=== PATIENT | female | born 1975 ===

== ENCOUNTER 2017-05-23 09:39 | Inpatient (IN) | payer MEDICAID, OTHER ==
[2017-05-23 09:43] VITALS: O2SAT 100
[2017-05-23 09:46] VITALS: BMI 27.4
--- NOTE | 2017-05-23 10:08 | ED PDOC ---
HPI: Psych/Substance Abuse Time Seen by Provider: 05/23/17 09:47 Chief Complaint (Nursing): Psychiatric Evaluation Chief Complaint (Provider): Psychiatric Evaluation History Per: Patient History/Exam Limitations: no limitations Additional Complaint(s): Yuliet Egan is a 41 year old female with a history of depression that presents to the ED with a chief complaint of suicidal ideation. Patient reports that she has not slept and wants to kill herself. She is agitated and begging for medication to "make me sleep." Denies homicidal ideation, auditory hallucinations, visual hallucinations. Denies somatic complaints. Past Medical History Reviewed: Historical Data, Nursing Documentation, Vital Signs Vital Signs: Last Vital Signs Temp 98.0 F 05/23/17 09:42 Pulse 90 05/23/17 09:42 Resp 16 05/23/17 09:42 BP 139/86 05/23/17 09:42 Pulse Ox 100 05/23/17 09:42 - Medical History PMH: Anxiety, Depression Denies: Alzheimer's Disease, Anemia, Arthritis, Asthma, Bipolar Disorder, Bronchitis, Cardia Arrhythmia, CHF, COPD, Crohn's Disease, Dementia, Diverticulitis, Emphysema, Fibromyalgia, Fractures, Gastrointestinal Ulcer, Gall Bladder Disease, HIV, HTN, Hypercholesterolemia, Hyperthyroidism, Hypothyroidism, Kidney Stones, Migraine, Mitral Valve Prolapse, Osteoporosis, Pancreatitis, Paranoia, Parkinson's Disease, Peripheral Edema, Pneumonia, Post Traumatic Stress Disorder, Chronic Kidney Disease, Schizophrenia, Seizures, Sickle Cell Disease, Sexually Transmitted Disease, Sleep Apnea, TIA - Surgical History Surgical History: Denies: Appendectomy, Cholecystectomy, Coronary Stent, Pacemaker - Family History Family History: States: Unknown Family Hx - Immunization History Hx Tetanus Toxoid Vaccination: No Hx Influenza Vaccination: No Hx Pneumococcal Vaccination: No - Home Medications Home Medications: Ambulatory Orders Medication Instructions Recorded Multivit/Folic Acid/I 1 tab PO DAILY 07/22/16 [ Plus] Justice Carbonate [Justice 600 mg PO BID #60 cap 05/18/17 Carbonate 300MG] Sertraline [Zoloft] 100 mg PO DAILY #30 tab 05/18/17 traZODone [Desyrel] 100 mg PO HS #60 tab 05/18/17 - Allergies Allergies/Adverse Reactions: Allergies Allergy/AdvReac Type Severity Reaction Status Date / Time No Known Allergies Allergy Verified 05/23/17 09:57 Review of Systems ROS Statement: Except As Marked, All Systems Reviewed And Found Negative Constitutional: Negative for: Fever, Chills Cardiovascular: Negative for: Chest Pain, Palpitations Respiratory: Negative for: Cough, Shortness of Breath, SOB with Exertion Gastrointestinal: Negative for: Nausea, Vomiting, Abdominal Pain, Diarrhea, Constipation Genitourinary Female: Negative for: Dysuria, Frequency, Incontinence, Vaginal Discharge, Vaginal Bleeding, Pelvic Pain Musculoskeletal: Negative for: Neck Pain Neurological: Negative for: Weakness, Numbness, Headache Psych: Positive for: Anxiety, Depression, Suicidal ideation (denies HI), Other ( Denies auditory or visual hallucinations) Physical Exam - Reviewed Nursing Documentation Reviewed: Yes Vital Signs Reviewed: Yes - Physical Exam Appears: Positive for: Non-toxic, No Acute Distress (Patient is tearful on exam , Agitated) Head Exam: Positive for: ATRAUMATIC, NORMOCEPHALIC Skin: Positive for: Normal Color, Warm Eye Exam: Positive for: Normal appearance, EOMI, PERRL Cardiovascular/Chest: Positive for: Regular Rate, Rhythm. Negative for: Murmur Respiratory: Positive for: Normal Breath Sounds. Negative for: Wheezing Gastrointestinal/Abdominal: Positive for: Normal Exam, Soft. Negative for: Tenderness Back: Positive for: Normal Inspection. Negative for: L CVA Tenderness, R CVA Tenderness Extremity: Positive for: Normal ROM Neurologic/Psych: Positive for: Alert, Oriented, Mood/Affect (Agitated affect). Negative for: Motor/Sensory Deficits - Laboratory Results Result Diagrams: 05/23/17 10:25 05/23/17 10:25 - ECG O2 Sat by Pulse Oximetry: 100 (RA) Pulse Ox Interpretation: Normal Medical Decision Making Medical Decision Making: Impression: Psychiatric Evaluation. Agitated. Plan: * Chest X-Ray * EKG * CMP * CBC * Urine Drug Screen * Urine Preg * Ativan 2 mg IV Will medically clear and consult psych 11:06AM Patient accepted by Dr. Nj for anxiety. EKG shows NSR at 75bpm with isolated t wave inversion in AVR and V1. No prior for comparison. No complaint of chest pain or shortness of breath. Poc negative. UA positive for trace leukocytes. No complaint of dysuria. Labs grossly normal. ETOh <10. UDS negative. Patient medically cleared. Scribe Attestation: Documented by Debi Cuadra, acting as a scribe for Allison Rm MD. Provider Scribe Attestation: All medical record entries made by the Scribe were at my direction and personally dictated by me. I have reviewed the chart and agree that the record accurately reflects my personal performance of the history, physical exam, medical decision making, and the department course for this patient. I have also personally directed, reviewed, and agree with the discharge instructions and disposition. Disposition - Clinical Impression Clinical Impression: Anxiety - Disposition Disposition Time: 11:08 Condition: FAIR - Pt Status Changed To: Hospital Disposition Of: Inpatient - Admit Certification Admit to Inpatient:: After my assessment, the patient will require hospitalization for at least two midnights. This is because of the severity of symptoms shown, intensity of services needed, and/or the medical risk in this patient being treated as an outpatient.
[2017-05-23 10:52] LABS: BASO % 0.4 % (0.0-2.0); EOS # 0.2 K/uL (0.0-0.7); EOS % 1.4 % (0.0-4.0); HEMATOCRIT 42.2 % (34.0-47.0); LYMPH % 16.2 % (20.0-40.0); MEAN CELL VOLUME 82.5 fl (81.0-99.0); MEAN CORPUSCULAR HEMOGLOBIN 26.7 pg (27.0-31.0); MEAN CORPUSCULAR HGB CONC 32.3 g/dL (33.0-37.0); MONO # 0.7 K/uL (0.0-0.8); MONO % 5.4 % (0.0-10.0); NEUT # 9.6 K/uL (1.8-7.0); NEUT % 76.6 % (50.0-75.0); NRBC % 0.2 % (0.0-0.0); RED CELL DISTRIBUTION WIDTH 14.5 % (11.5-14.5); WHITE BLOOD COUNT 12.6 K/uL (4.8-10.8)
[2017-05-23 11:09] LABS: ALCOHOL SERUM < 10 mg/dl (0-10); BILIRUBIN,TOTAL 0.8 mg/dl (0.2-1.3); CARBON DIOXIDE 27 mmol/L (22-30); CHLORIDE 105 mmol/L (98-107); GFR AFRICAN-AMERICAN > 60; GLUCOSE,RANDOM 90 mg/dL (65-105); SODIUM 142 mmol/l (132-148)
[2017-05-23 11:13] LABS: ALB/GLOB RATIO 1.2 (1.0-2.1); ALKALINE PHOSPHATASE 112 U/L (38-126); ALT/SGPT 48 U/L (9-52); AST/SGOT 65 U/L (14-36); BLOOD UREA NITROGEN 10 mg/dl (7-17); POTASSIUM 4.9 MMOL/L (3.6-5.0); TOTAL PROTEIN 8.1 G/DL (6.3-8.2)
--- NOTE | 2017-05-23 11:41 | RAD ---
HISTORY: depression COMPARISON: No prior. FINDINGS: LUNGS: No active pulmonary disease. There is some crowding of bronchovascular markings at the medial bases bilaterally. PLEURA: No significant pleural effusion identified, no pneumothorax apparent. CARDIOVASCULAR: Cardiomegaly is appreciated there is no definite pulmonary vascular derangement identified. Clinically correlate further nevertheless. OSSEOUS STRUCTURES: No significant abnormalities. VISUALIZED UPPER ABDOMEN: Normal. OTHER FINDINGS: None. IMPRESSION: Cardiomegaly. No definite pulmonary vascular derangement. Clinically correlate nevertheless. No definitive infiltrate bilaterally.
[2017-05-23 12:17] LABS: RBC URINE 3 /hpf (0-3); URINE BACTERIA OCC (<OCC); URINE BILIRUBIN NEGATIVE (NEGATIVE); URINE BLOOD NEGATIVE (NEGATIVE); URINE COLOR YELLOW (YELLOW); URINE GLUCOSE (UA) NEG (Normal); URINE KETONE NEGATIVE (NEGATIVE); URINE LEUKOCYTE ESTERASE LARGE Leu/uL (Negative); URINE PROTEIN 30 mg/dL (NEGATIVE); URINE UROBILINOGEN 0.2-1.0 mg/dL (0.2-1.0); WBC URINE 26 /hpf (0-5)
[2017-05-23] MEDS ORDERED: DiphenhydrAMINE 50 mg/ml Inj IM PRN (13:48)
[2017-05-23] MEDS ORDERED: Magnesium Hydroxide Susp 30 ml UD PO PRN (13:48)
[2017-05-23] MEDS ORDERED: Alum-Mag Hydrox-Simethicone Susp (30 mL) PO PRN (13:48)
--- NOTE | 2017-05-23 14:21 | CP.PCM.CON ---
History of Present Illness - History of Present Illness History of Present Illness: 41 year old female with a history of depression presented to ER with worsening symptoms of depression , unable to sleep for 4 weeks and suicidal thoughts. She was seen at [facility] 2 weeks ago and was started on seroquel and trazodone but as per patient is not helping. She complains of headache pressure like, inability to sleep. Denies any CP, SOB, urinary sx or changes in bowel movements She was diagnosed with depression 4 years ago and was treatedw ith medications but does not remember the name. 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 Review of Systems - Review of Systems All systems: reviewed and no additional remarkable complaints except Past Patient History - Infectious Disease Hx of Infectious Diseases: None - Tetanus Immunizations Tetanus Immunization: Unknown - Past Social History Smoking Status: Never Smoked - CARDIAC Hx Cardia Arrhythmia: No Hx Congestive Heart Failure: No Hx Hypercholesterolemia: No Hx Hypertension: No Hx Mitral Valve Prolapse: No Hx Pacemaker: No Hx Peripheral Edema: No - PULMONARY Hx Asthma: No Hx Bronchitis: No Hx Chronic Obstructive Pulmonary Disease (COPD): No Hx Emphysema: No Hx Pneumonia: No Hx Sleep Apnea: No - NEUROLOGICAL Hx Alzheimer's Disease: No Hx Dementia: No Hx Migraine: No Hx Parkinson's Disease: No Hx Seizures: No Hx Transient Ischemic Attacks (TIA): No - HEENT Hx HEENT Problems: No Hx Cataracts: No Hx Deafness: No Hx Difficulty Chewing: No Hx Epistaxis: No Hx Glaucoma: No Hx Macular Degeneration: No - RENAL Hx Chronic Kidney Disease: No Hx Kidney Stones: No - ENDOCRINE/METABOLIC Hx Hyperthyroidism: No Hx Hypothyroidism: No - HEMATOLOGICAL/ONCOLOGICAL Hx Anemia: No Hx Human Immunodeficiency Virus (HIV): No Hx Sickle Cell Disease: No - INTEGUMENTARY Hx Dermatological Problems: No Hx Basil Cell: No Hx Eczema: No Hx Melanoma: No Hx Psoriasis: No Hx Squamous Cell: No - MUSCULOSKELETAL/RHEUMATOLOGICAL Hx Arthritis: No Hx Fractures: No Hx Osteoporosis: No - GASTROINTESTINAL Hx Crohn's Disease: No Hx Diverticulitis: No Hx Gall Bladder Disease: No Hx Pancreatitis: No - GENITOURINARY/GYNECOLOGICAL Hx Sexually Transmitted Disorders: No - PSYCHIATRIC Hx Anxiety: Yes Hx Bipolar Disorder: No Hx Depression: Yes Hx Paranoia: No Hx Post Traumatic Stress Disorder: No Hx Schizophrenia: No - SURGICAL HISTORY Hx Appendectomy: No Hx Cholecystectomy: No Hx Coronary Stent: No - ANESTHESIA Hx Anesthesia: No Meds Allergies/Adverse Reactions: Allergies Allergy/AdvReac Type Severity Reaction Status Date / Time No Known Allergies Allergy Verified 05/23/17 09:57 - Medications Medications: Current Medications Acetaminophen (Tylenol 325mg Tab) 650 mg PO Q4 PRN PRN Reason: Pain, moderate (4-7) Al Hydrox/Mg Hydrox/Simethicone (Maalox Plus 30 Ml) 30 ml PO Q4 PRN PRN Reason: Dyspepsia Diphenhydramine HCl (Benadryl) 50 mg IM Q6 PRN PRN Reason: Extrapyramidal S/S Unable PO Diphenhydramine HCl (Benadryl) 50 mg PO Q6 PRN PRN Reason: Extrapyramidal Symptoms Escitalopram Oxalate (Lexapro) 5 mg PO DAILY ROSAURA Haloperidol (Haldol) 5 mg PO Q4 PRN PRN Reason: Agitation Haloperidol Lactate (Haldol) 5 mg IM Q4 PRN PRN Reason: Agitation, Unable to Take PO Lorazepam (Ativan) 2 mg IM Q4 PRN PRN Reason: Anxiety/Agitation,Unable PO Lorazepam (Ativan) 2 mg PO Q4 PRN PRN Reason: Anxiety/Agitation Magnesium Hydroxide (Milk Of Magnesia) 30 ml PO HS PRN PRN Reason: Constipation Zolpidem Tartrate (Ambien) 5 mg PO HS PRN PRN Reason: Insomnia Physical Exam - Constitutional Appears: Non-toxic, No Acute Distress - Head Exam Head Exam: ATRAUMATIC, NORMAL INSPECTION, NORMOCEPHALIC - Eye Exam Eye Exam: EOMI, Normal appearance, PERRL Pupil Exam: NORMAL ACCOMODATION - ENT Exam ENT Exam: Mucous Membranes Moist, Normal Exam - Neck Exam Neck exam: Positive for: Full Rom, Normal Inspection - Respiratory Exam Respiratory Exam: Clear to Auscultation Bilateral, NORMAL BREATHING PATTERN. absent: Rales, Rhonchi, Wheezes - Cardiovascular Exam Cardiovascular Exam: REGULAR RHYTHM, RRR, +S1, +S2. absent: JVD - GI/Abdominal Exam GI & Abdominal Exam: Normal Bowel Sounds, Soft. absent: Distended, Guarding, Rebound, Tenderness - Rectal Exam Rectal Exam: Deferred - Extremities Exam Extremities exam: Positive for: normal capillary refill, normal inspection, pedal pulses present. Negative for: calf tenderness, pedal edema - Back Exam Back exam: NORMAL INSPECTION - Neurological Exam Neurological exam: Alert, CN II-XII Intact, Oriented x3, Reflexes Normal - Psychiatric Exam Psychiatric exam: Anxious, Flat Affect - Skin Skin Exam: Dry, Intact, Normal Color, Warm Results - Vital Signs Recent Vital Signs: Last Vital Signs Temp 98.0 F 05/23/17 09:42 Pulse 90 05/23/17 09:42 Resp 16 05/23/17 09:42 BP 139/86 05/23/17 09:42 Pulse Ox 100 05/23/17 12:06 - Labs Result Diagrams: 05/23/17 10:25 05/23/17 10:25 Labs: Laboratory Results - last 24 hr 05/23/17 05/23/17 05/23/17 10:25 10:25 10:25 WBC 12.6 H RBC 5.11 Hgb 13.6 Hct 42.2 MCV 82.5 MCH 26.7 L MCHC 32.3 L RDW 14.5 Plt Count 382 MPV 8.0 Neut % (Auto) 76.6 H Lymph % (Auto) 16.2 L Lenoir % (Auto) 5.4 Eos % (Auto) 1.4 Baso % (Auto) 0.4 Neut # 9.6 H Lymph # 2.0 Lenoir # 0.7 Eos # 0.2 Baso # 0.0 Sodium 142 Potassium 4.9 Chloride 105 Carbon Dioxide 27 Anion Gap 15 BUN 10 Creatinine 0.7 Est GFR ( Amer) > 60 Est GFR (Non-Af Amer) > 60 Random Glucose 90 Calcium 9.0 Total Bilirubin 0.8 AST 65 H ALT 48 Alkaline Phosphatase 112 Total Protein 8.1 Albumin 4.4 Globulin 3.7 Albumin/Globulin Ratio 1.2 Urine Color Urine Clarity Urine pH Ur Specific Metz Urine Protein Urine Glucose (UA) Urine Ketones Urine Blood Urine Nitrate Urine Bilirubin Urine Urobilinogen Ur Leukocyte Esterase Urine RBC (Auto) Urine Microscopic WBC Ur Squamous Epith Cells Urine Bacteria Urine Opiates Screen Negative Urine Methadone Screen Negative Ur Barbiturates Screen Negative Ur Phencyclidine Scrn Negative Ur Amphetamines Screen Negative U Benzodiazepines Scrn Negative U Oth Cocaine Metabols Negative U Cannabinoids Screen Negative Alcohol, Quantitative < 10 05/23/17 10:25 WBC RBC Hgb Hct MCV MCH MCHC RDW Plt Count MPV Neut % (Auto) Lymph % (Auto) Lenoir % (Auto) Eos % (Auto) Baso % (Auto) Neut # Lymph # Lenoir # Eos # Baso # Sodium Potassium Chloride Carbon Dioxide Anion Gap BUN Creatinine Est GFR ( Amer) Est GFR (Non-Af Amer) Random Glucose Calcium Total Bilirubin AST ALT Alkaline Phosphatase Total Protein Albumin Globulin Albumin/Globulin Ratio Urine Color Yellow Urine Clarity Cloudy Urine pH 6.0 Ur Specific Metz 1.023 Urine Protein 30 Urine Glucose (UA) Neg Urine Ketones Negative Urine Blood Negative Urine Nitrate Negative Urine Bilirubin Negative Urine Urobilinogen 0.2-1.0 Ur Leukocyte Esterase Large Urine RBC (Auto) 3 Urine Microscopic WBC 26 H Ur Squamous Epith Cells 20 H Urine Bacteria Occ H Urine Opiates Screen Urine Methadone Screen Ur Barbiturates Screen Ur Phencyclidine Scrn Ur Amphetamines Screen U Benzodiazepines Scrn U Oth Cocaine Metabols U Cannabinoids Screen Alcohol, Quantitative Assessment & Plan - Assessment and Plan (Free Text) Assessment: 41 year old female with a history of depression presented to ER with worsening symptoms of depression , unable to sleep for 4 weeks and suicidal thoughts. Medicine consult called 1. Depression management as per psych 2. UTI UA cloudy with bacteria, WBC and LE EBC 12 k, afebrile started Ciprofloxacin PO Check urine cx 3. Dyslipidemia cholesterol 229 LDL 151 low fat diet
[2017-05-23 14:45] LABS: CHOLESTEROL 229 mg/dL (0-199)
--- NOTE | 2017-05-23 15:00 | PCM.BM ---
<Jorden Gonzalez - Last Filed: 05/23/17 14:57> Treatment Plan Problems - Problems identified on initial assessmt Hopelessness/Helplessness Date Initiated: 05/23/17 Time Initiated: 14:55 Assessment reference: NA Status: Active Treatment assets and liabiliti Patient Assests: cooperative, ADL independent, physically healthy, negotiates basic needs Patient Liabilities: financial problems, poor support system (has 4 months old child, living with relatives) - Milieu Protocol Maintain good personal hygiene: daily Encourage regular showers, daily Remind patient to perform daily oral care, daily Assist patient to perform ADL's Maintain personal safety: every shift Educate patient to report safety concerns to staff, every shift Monitor environment for contraband/sharps Medication safety: Monitor for expected outcome, potential side effects: every shift, Assess barriers to learning: every shift, Assess readiness for medication education: every shift Family Contact - Goals for Treatment Patient goals for treatment: to get better sleep and feel better <Ute Fried - Last Filed: 05/27/17 16:04> Treatment assets and liabiliti Patient Assests: adapts well, cooperative, ADL independent, physically healthy, negotiates basic needs Patient Liabilities: financial problems, poor support system, relationship conflicts, other (poor insight ; impaired coping skills/judgment) Family Contact Family involvement: Family/SO is involved Family contact: Patient agrees to contact, Family has been contacted by patient , Telephone contact initiated by staff Family contact name: Lurdes(sister)([phone]) Family contacted how many times per week?: 2 Family contact comment: 05/26/2017. Customer Experience Strategist placed call to patients sister ( Lurdes [phone]) to discuss patients progress on 3NP and confirm that patients children are currently being cared for by family. Customer Experience Strategist provided psychoeducation regarding nature of tx provided on 3NP and clinical updates regarding patients progress. Patients sister expressed understanding an confirmed that she is currently caring for patients 4 month old and 17 year old daughters. Customer Experience Strategist to continue provided clinical updates through-out patients stabilization. - Outside Agency Agency 1 Care involvment: Following patient during stay, Information-sharing, Other Agency contact name: [employer] research investigator (Emily Villagomez [phone]/) Agency contact number: Customer Experience Strategist [email or web address] casey saw operator. As per medical records from prior admission with [facility], there is currently an open DCP&P case. Customer Experience Strategist transferred to [facility] research investigator (Emily Villagomez [phone]). Customer Experience Strategist provided clinical updates regarding patients progress on 3NP. As per Ms. Villagomez, a MTP&P case was opened in February 2017 after police called the division reporting that patient was homeless/staying in motels with 2 young children.Patient initially denied all psychiatric hx to MTP[facility]P staff. It was later discovered that patient has significant hx of inpatient mental health issues. Although custody has not been taken from patient, patients sister is currently the primary caregiver for patients 17 y/o and 4 month old daughters. Ms. Villagomez reports patient has an adult son who is not in the residence and a 5 y/o who resides in [facility]. Ms. Villagomez reports [facility]P case will remain open for further investigation upon patients discharge from [facility]. Patients case is currently in the process of being assigned/transferred to a casey saw operator. Customer Experience Strategist instructed to notify MTP&P staff once patient is anticipated for discharge. - Goals for Treatment Patient goals for treatment: Patient to continue stabilization on 3NP through medication management and group/supportive therapy. Patient to be encouraged to attend groups regularly to promote self-awareness, compliance, and improve insight, coping skills and self-esteem. Patient to be provided with referral for appropriate level of aftercare to reduce risk of future hospitalizations and ensure safety in the community. Discharge/Continuing Care - Education Needs Education Needs: Family Medication, Family Coping Skills, Family Community resources, Family Aftercare Safety Plan, Patient Medication, Patient Coping Skills, Patient Community resources, Patient Aftercare Safety Plan - Discharge Discharge Criteria: Tolerates medication w/o severe side effects, Free of Suicidal thoughts, Free of agitation, Normal sleep pattern, Ability to care for self, Reduction of target symptoms Discharge to:: Home, With Family, Other (patient would benefit from a PHP) - Treatment Team Participation Patient/Family/SO Statement: 05/27/17 16:00 Patient attended tx team this morning to discuss progress on 3NP and tx goals. Patient continues to report severe anxiety, stating repeatedly "My mind isn't right. I feel like I'm going to . Help me. I am telling the truth." Patient reports not having slept in several days despite nursing reports that patient is sleeping through most of the night. Patient requires significant focusing/ redirection to elaborate on symptoms and discuss tx goals. Patient denies current SI/HI and is able to contract for safety. However, patient stated "I feel like I'm going to . I don't know what I'll do if I'm discharged" repeatedly. Patient encouraged to participate in groups and remain out of bedroom in order to promote sleep hygiene. Patient not receptive to feedback. 05/27/17 16:03 Discussed with Family/SO: No Was Patient/Family/SO present at Treatment Team Meeting: Yes
[2017-05-24 07:54] LABS: T4 8.67 ug/dl (5.5-11.0)
[2017-05-24 08:07] LABS: THYROID STIMULATING HORMONE 1.22 mIU/ML (0.46-4.68)
--- NOTE | 2017-05-24 11:37 | PCM.PSYCH ---
Initial Psychiatric Evaluation - Initial Psychiatric Evaluation Type of Admission: Voluntary Chief Complaint (in patient's own words): i cant live like this I am very depressed Patient's Reaction to Hospitalization: pt requested hospitalization History of Present Illness and Precipitating Events: pt is a 41 ys old , female with previous diagnosis of depression and anxiety recently discharged from [facility], pt presented to ED complaining of increased depression, anxiety, and sleeplessness. Pt reports having current suicidal ideations without a plan but states that she "just wants to ". pt is unclear about her current stressors and reports that her "head hurts" and that she cannot sleep. pt reported struggling with depression , for 4 months after having her last baby. Pt reports being hospitalized at [facility] in the past for psychiatric reasons but did not specify her complaint. Pt reports that she resides with sister and that she has a supportive family. Additionally pt states that her children are being currently cared for by her sister. she presents as tearful, anxious, depressed , pt denied s/h i , and denied perceptual disturbances Current Medications: Active Medications Generic Name Dose Route Start Last Admin Trade Name Freq PRN Reason Stop Dose Admin Acetaminophen 650 mg 05/23/17 13:48 05/23/17 18:13 Tylenol 325mg Tab PO 650 mg Q4 PRN Administration Pain, moderate (4-7) Al Hydrox/Mg Hydrox/Simethicone 30 ml 05/23/17 13:48 Maalox Plus 30 Ml PO Q4 PRN Dyspepsia Ciprofloxacin 500 mg 05/23/17 21:00 05/24/17 09:21 Cipro PO 500 mg Q12 ROSAURA Administration Protocol Diphenhydramine HCl 50 mg 05/23/17 13:48 Benadryl IM Q6 PRN Extrapyramidal S/S Unable PO Diphenhydramine HCl 50 mg 05/23/17 13:48 Benadryl PO Q6 PRN Extrapyramidal Symptoms Escitalopram Oxalate 10 mg 05/25/17 09:00 Lexapro PO DAILY ROSAURA Gabapentin 100 mg 05/24/17 13:00 Neurontin PO TID ROSAURA Haloperidol 5 mg 05/23/17 13:48 Haldol PO Q4 PRN Agitation Haloperidol Lactate 5 mg 05/23/17 13:48 Haldol IM Q4 PRN Agitation, Unable to Take PO Lorazepam 2 mg 05/23/17 13:48 Ativan IM Q4 PRN Anxiety/Agitation,Unable PO Lorazepam 2 mg 05/23/17 13:48 Ativan PO Q4 PRN Anxiety/Agitation Magnesium Hydroxide 30 ml 05/23/17 13:48 Milk Of Magnesia PO HS PRN Constipation Zolpidem Tartrate 10 mg 05/24/17 11:18 Ambien PO HS PRN Insomnia Past Psychiatric History - Past Psychiatric History Explanation of prior treatment: one hospitalization at [facility] IN 2006 FOR DEPRESSION TWO OTHER HOSPITALIZATIONS AT [facility] FOR SIMILAR PRESENTATION NO HISTORY OF PREVIOUS SUICIDAL ATTEMPTS History of Abuse: DENIED History of ETOH/Drug Use: DENIED History of Family Illness: DENIED Pertinent Medical Hx (Current Medical&Sleep Prob, Allergies): Allergies Allergy/AdvReac Type Severity Reaction Status Date / Time No Known Allergies Allergy Verified 05/23/17 09:57 Multivit/Folic Acid/I [ Plus] 1 tab PO DAILY 07/22/16 Pupukea Carbonate [Pupukea Carbonate 300MG] 600 mg PO BID #60 cap 05/18/17 Sertraline [Zoloft] 100 mg PO DAILY #30 tab 05/18/17 traZODone [Desyrel] 100 mg PO HS #60 tab 05/18/17 Mental Status Examination - Personal Presentation Personal Presentation: Looks older than stated age Additional comments: UNKEMPT - Affect Affect: Constricted, Depressed - Motor Activity Motor Activity: Psychomotor Agitation, Psychomotor Retardation - Reliability in Providing Information Reliability in Providing Information: Poor, due to altered mood - Speech Speech: Relevant - Mood Mood: Depressed, Anxious - Formal Thought Process Formal Thought Process: Circumstantial - Hallucinations/Delusions Additional comments: PT DENIED PERCEPTUAL DISTURBANCES, NON ELICITED - Obsessions/Compulsions Obsessions: No Compulsions: No - Cognitive Functions Orientation: Person, Place, Situation Sensorium: Alert Attention/Concentration: Attentive Abstract Thinking: [place] Estimate of Intelligence: Below average Judgement: Imparied, as evidence by: Poor judgement - Risk Risk: Diminished functioning - Strength & Assets Inventory Strength & Assets Inventory: Family support - Limitations Additional comments: UNEMPLOYED, FINANCIAL STRSSORS DSM 5 DX - DSM 5 DSM 5 Diagnosis: MAJOR DEPRESSION RECURRENT GENERALIZED ANXIETY DISORDER - Recommended/Plan of Treatment Treatment Recommendations and Plan of Treatment: START LEXAPRO 10MG FOR DEPRESSION NEURONTIN 100 MG TID FOR ANXIETY AMBIEN 10MG QHS FOR INSOMNIA MONITOR PT FOR PSYCHOPHARMACOLOGICAL EFFECTS AND SIDE EFFECT PROFILE CBT AND SUPPORTIVE THERAPY Projected ELOS: 7 DAYS Discharge Plan and Discharge Criteria: PT NO LONGER DEPRESSED
--- NOTE | 2017-05-25 12:36 | CARD ---
APPROVED REPORT EKG Measurement Heart [id number] <Conclusion> Normal sinus rhythm Possible Anterior infarct, age undetermined Abnormal ECG
--- NOTE | 2017-05-25 15:04 | PCM.PYCHPN ---
Psychiatric Progress Note - Psychiatric Progress Note Patient seen today, length of contact: pt evaluated discussed with team chart reviewed Patient Chief Complaint: my brain goes away to different places and i cant sleep Problems Identified/Issues Discussed: pt on evaluation, unkempt tearful, anxious mood and affect reported poor sleep, stated that she feels her brain is exploding , pt needs a lot of encouragment to attend groups, isolative in her room, denied any current suicidal or homicidal ideations denied perceptual disturbances Medical Problems: o DSM 5 Symptoms Update: generalized anxiety disorder peripartum depression Medication Change: Yes (start remeron) Medical Record Reviewed: Yes Mental Status Examination - Cognitive Function Orientation: Person, Place, Situation Attention: Poor Concentration: Poor Association: WNL Decription of patient's judgement and insights: poor insight and poor judgment - Mood Mood: Depressed, Anxious - Affect Affect: Constricted, Depressed - Speech Speech: Soft - Formal Thought Process Formal Thought Process: Circumstantial Psychotic Thoughts and Behaviors: pt denied perceptual disturbances, non elicited - Suicidal Ideation Suicidal Ideation: No - Homicidal Ideation Homicidal Ideation: No Goal/Treatment Plan - Goal/Treatment Plan Need for Continued Stay: Severe depression anxiety, Discharge may exacerbated symptoms Progress Toward Problem(s) and Goals/Treatment Plan: discontinue LEXAPRO start remeron 7.5mg qhs increase NEURONTIN 200 MG TID FOR ANXIETY discontinue AMBIEN MONITOR PT FOR PSYCHOPHARMACOLOGICAL EFFECTS AND SIDE EFFECT PROFILE CBT AND SUPPORTIVE THERAPY
--- NOTE | 2017-05-26 15:19 | PCM.PYCHPN ---
Psychiatric Progress Note - Psychiatric Progress Note Patient seen today, length of contact: pt evaluated discussed with team chart reviewed Patient Chief Complaint: i am very sick i could not go home Problems Identified/Issues Discussed: pt on evaluation, presenting with increase anxiety, indicating that she had no sleep although staff reported she slept throughout the night, unkempt tearful, presenting with the obsessive thought that she feels her brain is exploding , pt needs a lot of encouragment to attend groups, isolative in her room, denied any current suicidal or homicidal ideations denied perceptual disturbances Medical Problems: non reported DSM 5 Symptoms Update: depression ocd generalized anxiety disorder Medication Change: Yes (start fluvoxamine and abilify) Medical Record Reviewed: Yes Mental Status Examination - Cognitive Function Orientation: Person, Place, Situation Attention: Poor Concentration: Poor Association: WNL Fund of Knowledge: Poor Decription of patient's judgement and insights: poor insight and poor judgment - Mood Mood: Depressed, Anxious - Affect Affect: Constricted, Depressed - Speech Speech: Loud - Formal Thought Process Formal Thought Process: Circumstantial Psychotic Thoughts and Behaviors: pt denied perceptual disturbances, non elicited pt presenting with obsessive thoughts - Suicidal Ideation Suicidal Ideation: No - Homicidal Ideation Homicidal Ideation: No Goal/Treatment Plan - Goal/Treatment Plan Need for Continued Stay: Severe depression anxiety, Discharge may exacerbated symptoms Progress Toward Problem(s) and Goals/Treatment Plan: continue with remeron 7.5mg qhs and NEURONTIN 200 MG TID FOR ANXIETY start fluvoxamine 50mg and abilify 5mg with plan to uptitrate MONITOR PT FOR PSYCHOPHARMACOLOGICAL EFFECTS AND SIDE EFFECT PROFILE CBT AND SUPPORTIVE THERAPY Estimated Date of D/C: 06/02/17
--- NOTE | 2017-05-27 15:39 | PCM.PYCHPN ---
Psychiatric Progress Note - Psychiatric Progress Note Patient seen today, length of contact: pt evaluated discussed with team chart reviewed Patient Chief Complaint: i am very sick please help me Problems Identified/Issues Discussed: pt on evaluation, presenting with increase anxiety, indicating that she had no sleep although staff reported she slept throughout the night, unkempt tearful, presenting with the obsessive thought that she feels her brain is exploding , pt needs a lot of encouragment to attend groups, isolative in her room, denied any current suicidal or homicidal ideations denied perceptual disturbances Medical Problems: non reported DSM 5 Symptoms Update: depression ocd Medical Record Reviewed: Yes Mental Status Examination - Cognitive Function Orientation: Person, Place, Situation Attention: Poor Concentration: Poor Association: WNL Fund of Knowledge: Poor Decription of patient's judgement and insights: poor insight and poor judgment - Mood Mood: Depressed, Anxious - Affect Affect: Constricted, Depressed - Speech Speech: Loud - Formal Thought Process Formal Thought Process: Circumstantial Psychotic Thoughts and Behaviors: pt denied perceptual disturbances, non elicited pt presenting with obsessive thoughts - Suicidal Ideation Suicidal Ideation: No - Homicidal Ideation Homicidal Ideation: No Goal/Treatment Plan - Goal/Treatment Plan Need for Continued Stay: Severe depression anxiety, Discharge may exacerbated symptoms Progress Toward Problem(s) and Goals/Treatment Plan: continue with remeron 7.5mg qhs and NEURONTIN 200 MG TID FOR ANXIETY fluvoxamine 50mg and abilify 5mg with plan to uptitrate MONITOR PT FOR PSYCHOPHARMACOLOGICAL EFFECTS AND SIDE EFFECT PROFILE CBT AND SUPPORTIVE THERAPY Estimated Date of D/C: 06/02/17
--- NOTE | 2017-05-28 10:47 | PCM.PYCHPN ---
Psychiatric Progress Note - Psychiatric Progress Note Patient seen today, length of contact: pt evaluated discussed with team chart reviewed Patient Chief Complaint: i am very sick please help me I do not want to go home Problems Identified/Issues Discussed: pt on evaluation, presenting with increase anxiety, indicating that she had no sleep although staff reported she slept throughout the night, tearful, presenting with the obsessive thought that she feels her brain is exploding , reporting if she goes home she would be unable to attend to herself or her children, denied any current suicidal or homicidal ideations denied perceptual disturbances Medical Problems: non reported DSM 5 Symptoms Update: depression generalized anxiety disorder ocd Medication Change: Yes (increase fluvoxamine) Medical Record Reviewed: Yes Mental Status Examination - Cognitive Function Orientation: Person, Place, Situation Attention: Poor Concentration: Poor Association: WNL Fund of Knowledge: Poor Decription of patient's judgement and insights: poor insight and poor judgment - Mood Mood: Depressed, Anxious - Affect Affect: Constricted, Depressed - Speech Speech: Loud - Formal Thought Process Formal Thought Process: Circumstantial Psychotic Thoughts and Behaviors: pt denied perceptual disturbances, non elicited pt presenting with obsessive thoughts - Suicidal Ideation Suicidal Ideation: No - Homicidal Ideation Homicidal Ideation: No Goal/Treatment Plan - Goal/Treatment Plan Need for Continued Stay: Severe depression anxiety, Discharge may exacerbated symptoms Progress Toward Problem(s) and Goals/Treatment Plan: discontinue remeron 7.5mg qhs , continue NEURONTIN 200 MG TID FOR ANXIETY increase fluvoxamine 50mg bid ,ambien for sleep abilify 5mg MONITOR PT FOR PSYCHOPHARMACOLOGICAL EFFECTS AND SIDE EFFECT PROFILE CBT AND SUPPORTIVE THERAPY Estimated Date of D/C: 06/02/17
--- NOTE | 2017-05-29 16:08 | PCM.PYCHPN ---
Psychiatric Progress Note - Psychiatric Progress Note Patient seen today, length of contact: pt evaluated discussed with team chart reviewed Patient Chief Complaint: i am very sick please help me I do not want to go home Problems Identified/Issues Discussed: pt on evaluation, presenting with increase anxiety, indicating that she had no sleep although staff reported she slept throughout the night, tearful, presenting with the obsessive thought that she feels her brain is exploding , reporting if she goes home she would be unable to attend to herself or her children, denied any current suicidal or homicidal ideations denied perceptual disturbances Medical Problems: non reported Medication Change: Yes (INCREASE AMBIEN) Medical Record Reviewed: Yes Mental Status Examination - Cognitive Function Orientation: Person, Place, Situation Attention: Poor Concentration: Poor Association: WNL Fund of Knowledge: Poor Decription of patient's judgement and insights: poor insight and poor judgment - Mood Mood: Depressed, Anxious - Affect Affect: Constricted, Depressed - Speech Speech: Loud - Formal Thought Process Formal Thought Process: Circumstantial Psychotic Thoughts and Behaviors: pt denied perceptual disturbances, non elicited pt presenting with obsessive thoughts - Suicidal Ideation Suicidal Ideation: No - Homicidal Ideation Homicidal Ideation: No Goal/Treatment Plan - Goal/Treatment Plan Need for Continued Stay: Severe depression anxiety, Discharge may exacerbated symptoms Progress Toward Problem(s) and Goals/Treatment Plan: , continue NEURONTIN 200 MG TID FOR ANXIETY AND fluvoxamine 50mg bid ,ambien for sleep abilify 5mg MONITOR PT FOR PSYCHOPHARMACOLOGICAL EFFECTS AND SIDE EFFECT PROFILE CBT AND SUPPORTIVE THERAPY Estimated Date of D/C: 06/02/17
--- NOTE | 2017-05-30 11:32 | PCM.PYCHPN ---
Psychiatric Progress Note - Psychiatric Progress Note Patient seen today, length of contact: pt evaluated discussed with team chart reviewed Patient Chief Complaint: pt still feels depressed and still overanxious that she is not sleeping and her brain is going to explode and remains with poor insight and poor judgement . DSM 5 Symptoms Update: depression Medication Change: Yes (INCREASE AMBIEN) Medical Record Reviewed: Yes Mental Status Examination - Cognitive Function Orientation: Person, Place, Situation Attention: Poor Concentration: Poor Association: WNL Fund of Knowledge: Poor - Mood Mood: Depressed, Anxious - Affect Affect: Constricted, Depressed - Speech Speech: Loud - Formal Thought Process Formal Thought Process: Circumstantial - Suicidal Ideation Suicidal Ideation: No - Homicidal Ideation Homicidal Ideation: No Goal/Treatment Plan - Goal/Treatment Plan Need for Continued Stay: Severe depression anxiety, Discharge may exacerbated symptoms Progress Toward Problem(s) and Goals/Treatment Plan: will increase ambien to 5 mg hs and add vistaril 50 mg hs and stabilize depresion and OCD with luvox and neurontin. disposition plans as per dr cuba Estimated Date of D/C: 06/02/17
--- NOTE | 2017-05-31 11:47 | PCM.PYCHPN ---
Psychiatric Progress Note - Psychiatric Progress Note Patient seen today, length of contact: pt evaluated discussed with team chart reviewed Patient Chief Complaint: pt still feels depressed and still overanxious that she is not sleeping and her brain is going to explode and remains with poor insight and poor judgement . Medication Change: Yes (INCREASE AMBIEN) Medical Record Reviewed: Yes Mental Status Examination - Cognitive Function Orientation: Person, Place, Situation Attention: Poor Concentration: Poor Association: WNL Fund of Knowledge: Poor - Mood Mood: Depressed, Anxious - Affect Affect: Constricted, Depressed - Speech Speech: Loud - Formal Thought Process Formal Thought Process: Circumstantial - Suicidal Ideation Suicidal Ideation: No - Homicidal Ideation Homicidal Ideation: No Goal/Treatment Plan - Goal/Treatment Plan Need for Continued Stay: Severe depression anxiety, Discharge may exacerbated symptoms Progress Toward Problem(s) and Goals/Treatment Plan: will increase ambien to 5 mg hs and add vistaril 50 mg hs and stabilize depresion and OCD with luvox and neurontin. disposition plans as per dr cuba Estimated Date of D/C: 06/02/17
[2017-06-01 05:56] VITALS: BP 132/62; PULSE 52; RESP 19; TEMP 97.7
--- NOTE | 2017-06-01 10:04 | PCM.PYCHDC ---
Mental Status Examination - Mental Status Examination Orientation: Person, Place, Situation, Time Memory: Intact Mood: Neutral Affect: Broad Speech: Appropriate Attention: WNL Concentration: WNL Association: WNL Fund of Knowledge: WNL Formal Thought Process: No Impairment Description of patient's judgement and insight: Fair I/J Psychotic Thoughts and Behaviors: NO AH/VH/paranoia/delusions Suicidal Ideation: No Current Homicidal Ideation?: No Discharge Summary - Discharge Note Reason for Hospitalization: CC: i cant live like this I am very depressed History of Present Illness and Precipitating Events: pt is a 41 ys old , female with previous diagnosis of depression and anxiety recently discharged from [facility], pt presented to ED complaining of increased depression, anxiety, and sleeplessness. Pt reports having current suicidal ideations without a plan but states that she "just wants to ". pt is unclear about her current stressors and reports that her "head hurts" and that she cannot sleep. pt reported struggling with depression , for 4 months after having her last baby. Pt reports being hospitalized at [facility] in the past for psychiatric reasons but did not specify her complaint. Pt reports that she resides with sister and that she has a supportive family. Additionally pt states that her children are being currently cared for by her sister. she presents as tearful, anxious, depressed , pt denied s/h i , and denied perceptual disturbances Consultations:: List each consultation separately and include: 1. Reason for request. 2. Findings. 3. Follow-up Consultations: Medicine consult Summary of Hospital Course include:: 1. Description of specific treatment plan utilized for patients during their course of treatmen. 2. Summarize the time- course for resolution of acute symptoms and/or regressed behaviors. 3. Describe issues identified and worked on during hospitalization. 4. Describe medication utilized. 5. Describe medical problems identified and treated. 6. Reassessment of suicide risk Summary of Hospital Course: Patient was admitted to the psychiatry unit. Individual and group therapy were provided. Patient was stabilized on Abilify 5 mg PO Daily, Luvox 50 mg PO BID, Neurontin 200 mg PO BID and Ambien 5 mg PO HS PRN insomnia. Patient is psychiatrically stable for discharge. Psychoeducation was provided on the importance of outpatient follow-up and compliance with medications. - Final Diagnosis (DSM 5) Condition upon Discharge: STABLE DSM 5: Major Depressive Disorder, Generalized Anxiety Disorder Disposition: HOME/ ROUTINE Prescriptions/Medication Reconciliation: ARIPiprazole [Abilify] 5 mg PO DAILY #30 tab fluvoxaMINE [Luvox] 50 mg PO BID #60 tab Gabapentin [Neurontin] 200 mg PO TID #180 cap Zolpidem [Ambien] 5 mg PO HS #30 tab - Smoking Cessation Smoking Cessation Medication prescribed: No Reason for not providing: Not indicated - Antipsychotic Medications Pt discharged on 2 or more routine antipsychotic medications: No
== END 2017-06-01 12:44 | disposition home or self-care (01) | DRG 885 ==
LOC: H.ER 09:39 → H.ERHOLD 11:15 → H.PSYCH 12:45 → H.STEP 05-31 22:57
PROVIDERS: ADMIT Psychiatry & Neurology Psychiatry; ATTEND Psychiatry & Neurology Psychiatry
PROC: GZ51ZZZ Individual Psychotherapy, Behavioral (ICD-10-PCS; 2017-05-24)
PROC: GZHZZZZ Group Psychotherapy (ICD-10-PCS; principal; 2017-05-25)
DX: F33.9 Major depressive disorder, recurrent, unspecified (principal); R45.851 Suicidal ideations; N39.0 Urinary tract infection, site not specified; E78.5 Hyperlipidemia, unspecified; F41.1 Generalized anxiety disorder; F42.9 Obsessive-compulsive disorder, unspecified; G47.00 Insomnia, unspecified; R51 Headache; Z79.899 Other long term (current) drug therapy

== ENCOUNTER 2018-08-02 10:22 | Inpatient (IN) | payer MEDICAID, OTHER ==
[2018-08-02 10:25] VITALS: BMI 32.9
--- NOTE | 2018-08-02 11:15 | ED PDOC ---
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 with a history of depression and bipolar presents to ED fairly agitated complaining of her "head feeling crazy" and inability to sleep. She reports she is so sick of this feeling she wanted to go outside today to get hit by a car. Pt. has had psychiatric admissions in past, reports she has not followed up with anyone on outpt. basis and has not been taking any meds. Past Medical History Vital Signs: Last Vital Signs Temp 97.4 F L 08/02/18 10:25 Pulse 89 08/02/18 10:25 Resp 17 08/02/18 10:25 BP 159/102 H 08/02/18 10:25 Pulse Ox 98 08/02/18 10:27 - Medical History PMH: Anxiety, Bipolar Disorder, Depression Denies: Alzheimer's Disease, Anemia, Arthritis, Asthma, Bronchitis, Cardia Arrhythmia, CHF, COPD, Crohn's Disease, Dementia, Diverticulitis, Emphysema, Fibromyalgia, Fractures, Gastrointestinal Ulcer, Gall Bladder Disease, HIV, HTN, Hypercholesterolemia, Hyperthyroidism, Hypothyroidism, Kidney Stones, Migraine, Mitral Valve Prolapse, Osteoporosis, Pancreatitis, Paranoia, Parkinson's Disease, Peripheral Edema, Pneumonia, Post Traumatic Stress Disorder, Chronic Kidney Disease, Schizophrenia, Seizures, Sickle Cell Disease, Sexually Transmitted Disease, Sleep Apnea, TIA - Surgical History Surgical History: Denies: Appendectomy, Cholecystectomy, Coronary Stent, Pacemaker - Family History Family History: States: Unknown Family Hx - Immunization History Hx Tetanus Toxoid Vaccination: No Hx Influenza Vaccination: No Hx Pneumococcal Vaccination: No - Home Medications Home Medications: Ambulatory Orders Medication Instructions Recorded ARIPiprazole [Abilify] 5 mg PO DAILY #30 tab 06/01/17 Gabapentin [Neurontin] 200 mg PO TID #180 cap 06/01/17 Benztropine [Cogentin] 1 mg PO BID #60 tab 06/11/17 Divalproex [Depakote ER] 500 mg PO BID #60 ter 06/11/17 hydrOXYzine HCl [Atarax] 50 mg PO BID PRN #60 tab 06/11/17 risperiDONE [RisperDAL Tab] 2 mg PO BID #60 tab 06/11/17 traZODone [Desyrel] 50 mg PO HS PRN #30 tab 06/11/17 - Allergies Allergies/Adverse Reactions: Allergies Allergy/AdvReac Type Severity Reaction Status Date / Time No Known Allergies Allergy Verified 08/02/18 10:26 Review of Systems Constitutional: Negative for: Fever Eyes: Negative for: Vision Change Cardiovascular: Negative for: Chest Pain Respiratory: Negative for: Cough Physical Exam - Reviewed Nursing Documentation Reviewed: Yes Vital Signs Reviewed: Yes - Physical Exam Appears: Positive for: Uncomfortable Head Exam: Positive for: ATRAUMATIC Skin: Positive for: Normal Color, Warm, Dry Eye Exam: Positive for: Normal appearance ENT: Positive for: Normal ENT Inspection Neck: Positive for: Normal Cardiovascular/Chest: Positive for: Regular Rate, Rhythm Respiratory: Positive for: Normal Breath Sounds Gastrointestinal/Abdominal: Positive for: Normal Exam Neurologic/Psych: Positive for: Alert, Mood/Affect (agitated, anxious) - Laboratory Results Result Diagrams: 08/02/18 13:00 08/02/18 13:00 - ECG ECG: Positive for: Interpreted By Me ECG Rhythm: Positive for: Sinus Rhythm (QTc 455ms), Premature Ventricular Contraction Rate: 82 O2 Sat by Pulse Oximetry: 98 Medical Decision Making Medical Decision Making: Labs sent EKG orderd CXR ordered CXR:napd; as read by me Case d/w flow worker who evaluted pt. in ED. Pt. is to be admitted to s/o Dr. Lynne. Pt. anxious in ED, ativan IM given. Disposition - Clinical Impression Clinical Impression: Moderate major depression, single episode - Patient ED Disposition Is Patient to be Admitted: Yes Counseled Patient/Family Regarding: Studies Performed - Disposition Disposition Time: 13:31 Condition: STABLE Forms: [facility] (Mauritanian)
--- NOTE | 2018-08-02 12:40 | RAD ---
Date of service: 08/02/2018 HISTORY: psych clearance COMPARISON: Comparison is made with 05/23/2017 TECHNIQUE: Chest PA and lateral FINDINGS: LUNGS: No active pulmonary disease. PLEURA: No significant pleural effusion identified. No pneumothorax apparent. CARDIOVASCULAR: No aortic atherosclerotic calcification present. Normal cardiac size. No pulmonary vascular congestion. OSSEOUS STRUCTURES: No significant abnormalities. VISUALIZED UPPER ABDOMEN: Normal. OTHER FINDINGS: None. IMPRESSION: No active disease.
[2018-08-02 13:16] LABS: BASO # 0.1 K/uL (0.0-0.2); BASO % 0.8 % (0.0-2.0); EOS # 0.1 K/uL (0.0-0.7); EOS % 1.4 % (0.0-4.0); HEMOGLOBIN 13.8 g/dL (12.0-16.0); LYMPH % 20.3 % (20.0-40.0); MEAN CELL VOLUME 86.8 fl (81.0-99.0); MEAN CORPUSCULAR HEMOGLOBIN 28.6 pg (27.0-31.0); MONO # 0.7 K/uL (0.0-0.8); NEUT # 6.9 K/uL (1.8-7.0); NEUT % 70.5 % (50.0-75.0); RBC 4.8 Mil/uL (3.80-5.20); RED CELL DISTRIBUTION WIDTH 13.9 % (11.5-14.5); WHITE BLOOD COUNT 9.8 K/uL (4.8-10.8)
[2018-08-02 13:29] LABS: ALB/GLOB RATIO 1.2 (1.0-2.1); ALBUMIN 4.4 g/dL (3.5-5.0); ALT/SGPT 70 U/L (9-52); AST/SGOT 35 U/L (14-36); BLOOD UREA NITROGEN 13 mg/dl (7-17); CALCIUM 9.5 mg/dL (8.4-10.2); GFR NON-AFRICAN AMERICAN > 60
[2018-08-02 13:57] VITALS: O2SAT 99
[2018-08-02 14:53] LABS: SQUAMOUS EPITHIAL 6 /hpf (0-5); URINE AMORPHOUS SEDIMENT RARE /ul (<OCC); URINE BILIRUBIN NEGATIVE (NEGATIVE); URINE BLOOD LARGE (NEGATIVE); URINE CLARITY CLOUDY (Clear); URINE GLUCOSE (UA) NEG (NEGATIVE); URINE LEUKOCYTE ESTERASE LARGE Leu/uL (Negative); URINE PROTEIN 30 mg/dL (NEGATIVE); URINE UROBILINOGEN 0.2-1.0 mg/dL (0.2-1.0)
[2018-08-02 14:54] LABS: URINE COLOR LIGHT RED (YELLOW)
[2018-08-02] MEDS ORDERED: DiphenhydrAMINE 50 mg/ml Inj IM PRN (14:58)
[2018-08-02] MEDS ORDERED: Magnesium Hydroxide Susp 30 ml UD PO PRN (14:58)
[2018-08-02] MEDS ORDERED: Alum-Mag Hydrox-Simethicone Susp (30 mL) PO PRN (14:58)
[2018-08-02 15:18] LABS: BARBITURATES, UR NEGATIVE (NEGATIVE); BENZODIAZEPINES, UR NEGATIVE (NEGATIVE); OPIATES, UR NEGATIVE (NEGATIVE); PHENCYCLIDINE, UR NEGATIVE (NEGATIVE)
--- NOTE | 2018-08-02 16:40 | PCM.BM ---
<ToluFavian - Last Filed: 08/02/18 16:38> Treatment Plan Problems - Problems identified on initial assessmt Anxiety Date Initiated: 08/02/18 Time Initiated: 16:40 Assessment reference: NA Status: Active Altered Sleep Patterns Date Initiated: 08/02/18 Time Initiated: 16:40 Assessment reference: NA Status: Active Feelings of Worthlessness Date Initiated: 08/02/18 Time Initiated: 16:40 Assessment reference: NA Status: Active Treatment assets and liabiliti Patient Assests: cooperative, self-reliant, ADL independent, physically healthy, negotiates basic needs Patient Liabilities: legal issue - Milieu Protocol Maintain good personal hygiene: daily Encourage regular showers, daily Remind patient to perform daily oral care, daily Assist patient to perform ADL's Conduct patient checks and document Observation sheet: Q15 minutes Maintain personal safety: every shift Educate patient to report safety concerns to staff, every shift Monitor environment for contraband/sharps Medication safety: Monitor for expected outcome, potential side effects: every shift, Assess barriers to learning: every shift, Assess readiness for medication education: every shift Milieu Narrative: internal medicine consult neurontin 100mg tid seroquel 100mg qhs / increase gradually cbt group and supportive therapy Family Contact Family involvement: Family/SO is involved Discharge/Continuing Care - Treatment Team Participation Patient/Family/SO Statement: internal medicine consult neurontin 100mg tid seroquel 100mg qhs / increase gradually cbt group and supportive therapy <Ute Fried - Last Filed: 08/06/18 15:35> Treatment assets and liabiliti Patient Assests: self-reliant, ADL independent, good support system (Pt. identifies sister as primary support. ), cognitively intact Patient Liabilities: financial problems (Pt. reports limited employment hx and reports difficulties maintaining employment secondary to psychiatric sxs. Pt. reports financial strain and reports being financially reliant on sibling.), poor support system (Limited supports ; Staff unable to reach sister), other (Poor insight ; Impaired coping skills/judgment/insight) Family Contact Family involvement: Family/SO is involved Family contact: Patient agrees to contact Family contact name: Lurdes(sister) ([phone]) Family contact comment: Casino Controller placed call to pts sister Lurdes(sister) ([phone]) to discuss pts progress on 3NP and collect further collateral. Casino Controller left 2nd voicemail requesting return phone call and is awaiting response. - Goals for Treatment Patient goals for treatment: Patient to continue stabilization on 3NP through medication management and group/supportive therapy to address sxs of depression and anxiety and improve sleep. Patient to be encouraged to attend groups regularly to promote self-awareness, reality testing, and improve insight, compliance, coping skills and self-esteem. Patient to be provided with referral for appropriate level of aftercare to reduce risk of future hospitalizations and ensure safety in the community. Pt. identified tx goal as "getting cured" and being able to sleep through the night. Discharge/Continuing Care - Education Needs Education Needs: Patient Medication, Patient Diagnosis/Disease Process, Patient Coping Skills, Patient Community resources, Patient Personal Hygiene/Grooming, Patient Aftercare Safety Plan - Discharge Discharge Criteria: Tolerates medication w/o severe side effects, Free of Suicidal thoughts, Free of agitation, Normal sleep pattern, Ability to care for self Discharge to:: Home (Casino Controller unable to confirm stability of pts housing. Patients sister has not returned writers call. Patient has provided a number for boyfriend that is inactive) - Treatment Team Participation Patient/Family/SO Statement: 08/06/18 15:41 LATE NOTE: Patient was brought into tx team on 08/04 to discuss progress on 3NP and tx goals. Pt. presented as anxious and labile, crying through-out discussion with tx team, repeatedly stating Cure me. Help me. I cant sleep. I love you. Do you love me? Pt. perseverating on idea that her airway is closing and that she is dying. Extensive reality testing implemented. Emotional support provided. Pt. minimally receptive to redirection despite max engagement from staff. Insi ght into precursors to hospitalization noted to be poor. Coping skills/Judgment grossly impaired. Pt. reported feelings of hopelessness and expressed preferring to than continue to live in this condition. Pt. was able to contract for safety on 3NP. Pt. assured of staff availability. Importance of limit setting and remaining in behavioral control discussed at length. Discussed with Family/SO: No Was Patient/Family/SO present at Treatment Team Meeting: Yes <Agnes Nj - Last Filed: 08/11/18 12:20> - Diagnosis (1) Anxiety Status: Acute Interventions: psychotherapy, pharmacotherapy 08/11/18 12:19
--- NOTE | 2018-08-02 17:55 | CARD ---
APPROVED REPORT Date of service: 08/02/2018 EKG Measurement Heart [id number] <Conclusion> Normal sinus rhythm Normal ECG
[2018-08-03 08:48] LABS: T4 6.36 ug/dl (5.5-11.0)
--- NOTE | 2018-08-03 10:33 | CP.PCM.CON ---
History of Present Illness - History of Present Illness History of Present Illness: 42 yo female with history of bipolar do admitted to psyche unit because of increased anxiety and suicidal ideation. Review of Systems - Review of Systems All systems: reviewed and no additional remarkable complaints except (aside from those mentioned above, 12 point system review were negative by me) Past Patient History - Infectious Disease Hx of Infectious Diseases: None - Tetanus Immunizations Tetanus Immunization: Unknown - Past Medical History & Family History Past Medical History?: No - Past Social History Smoking Status: Never Smoked Chewing Tobacco Use: No Cigar Use: No Alcohol: None Drugs: Denies - CARDIAC Hx Cardiac Disorders: No Hx Cardia Arrhythmia: No Hx Congestive Heart Failure: No Hx Hypercholesterolemia: No Hx Hypertension: No Hx Mitral Valve Prolapse: No Hx Pacemaker: No Hx Peripheral Edema: No - PULMONARY Hx Respiratory Disorders: No Hx Asthma: No Hx Bronchitis: No Hx Chronic Obstructive Pulmonary Disease (COPD): No Hx Emphysema: No Hx Pneumonia: No Hx Sleep Apnea: No - NEUROLOGICAL Hx Neurological Disorder: No Hx Alzheimer's Disease: No Hx Dementia: No Hx Migraine: No Hx Parkinson's Disease: No Hx Seizures: No Hx Transient Ischemic Attacks (TIA): No - HEENT Hx HEENT Problems: No Hx Cataracts: No Hx Deafness: No Hx Difficulty Chewing: No Hx Epistaxis: No Hx Glaucoma: No Hx Macular Degeneration: No - RENAL Hx Chronic Kidney Disease: No Hx Kidney Stones: No - ENDOCRINE/METABOLIC Hx Endocrine Disorders: No Hx Hyperthyroidism: No Hx Hypothyroidism: No - HEMATOLOGICAL/ONCOLOGICAL Hx Blood Disorders: No Hx Anemia: No Hx Human Immunodeficiency Virus (HIV): No Hx Sickle Cell Disease: No - INTEGUMENTARY Hx Dermatological Problems: No Hx Basil Cell: No Hx Eczema: No Hx Melanoma: No Hx Psoriasis: No Hx Squamous Cell: No - MUSCULOSKELETAL/RHEUMATOLOGICAL Hx Musculoskeletal Disorders: No Hx Arthritis: No Hx Fractures: No Hx Osteoporosis: No - GASTROINTESTINAL Hx Gastrointestinal Disorders: No Hx Crohn's Disease: No Hx Diverticulitis: No Hx Gall Bladder Disease: No Hx Pancreatitis: No - GENITOURINARY/GYNECOLOGICAL Hx Genitourinary Disorders: No Hx Sexually Transmitted Disorders: No - PSYCHIATRIC Hx Anxiety: Yes Hx Bipolar Disorder: Yes Hx Depression: Yes Hx Emotional Abuse: No Hx Physical Abuse: No Hx Sexual Abuse: No Hx Substance Use: No - SURGICAL HISTORY Hx Surgeries: No Hx Appendectomy: No Hx Cholecystectomy: No Hx Coronary Stent: No - ANESTHESIA Hx Anesthesia: No Meds Allergies/Adverse Reactions: Allergies Allergy/AdvReac Type Severity Reaction Status Date / Time No Known Allergies Allergy Verified 08/02/18 10:26 - Medications Medications: Current Medications Acetaminophen (Tylenol 325mg Tab) 650 mg PO Q4 PRN PRN Reason: Pain, moderate (4-7) Last Admin: 08/03/18 03:35 Dose: 650 mg Al Hydrox/Mg Hydrox/Simethicone (Maalox Plus 30 Ml) 30 ml PO Q4 PRN PRN Reason: Dyspepsia Diphenhydramine HCl (Benadryl) 50 mg IM Q6 PRN PRN Reason: Extrapyramidal S/S Unable PO Diphenhydramine HCl (Benadryl) 50 mg PO Q6 PRN PRN Reason: Extrapyramidal Symptoms Diphenhydramine HCl (Benadryl) 50 mg PO HS PRN PRN Reason: Sleep Gabapentin (Neurontin) 100 mg PO TID [facility] Last Admin: 08/03/18 08:27 Dose: 100 mg Haloperidol (Haldol) 5 mg PO Q4 PRN PRN Reason: Agitation Haloperidol Lactate (Haldol) 5 mg IM Q4 PRN PRN Reason: Agitation, Unable to Take PO Lorazepam (Ativan) 2 mg IM Q4 PRN PRN Reason: Anxiety/Agitation,Unable PO Lorazepam (Ativan) 1 mg PO Q8 PRN PRN Reason: Anxiety/Agitation Last Admin: 08/03/18 08:27 Dose: 1 mg Magnesium Hydroxide (Milk Of Magnesia) 30 ml PO HS PRN PRN Reason: Constipation Quetiapine Fumarate (Seroquel) 100 mg PO HS [facility] Last Admin: 08/02/18 21:12 Dose: 100 mg Physical Exam - Constitutional Appears: No Acute Distress, Other (obese) - Head Exam Head Exam: ATRAUMATIC - Eye Exam Eye Exam: absent: Scleral icterus - ENT Exam ENT Exam: Mucous Membranes Moist - Neck Exam Neck exam: Negative for: Meningismus - Respiratory Exam Respiratory Exam: absent: Rales, Rhonchi, Wheezes, Respiratory Distress - Cardiovascular Exam Cardiovascular Exam: REGULAR RHYTHM, +S1, +S2 - GI/Abdominal Exam GI & Abdominal Exam: Soft. absent: Tenderness - Rectal Exam Rectal Exam: Deferred - Extremities Exam Extremities exam: Negative for: pedal edema - Back Exam Back exam: NORMAL INSPECTION - Neurological Exam Neurological exam: Alert, Oriented x3 - Psychiatric Exam Psychiatric exam: Normal Affect - Skin Skin Exam: Dry, Intact Results - Vital Signs Recent Vital Signs: Last Vital Signs Temp 98.5 F 08/03/18 09:30 Pulse 83 08/03/18 09:30 Resp 19 08/03/18 09:30 BP 117/69 08/03/18 09:30 Pulse Ox 99 08/02/18 14:10 - Labs Result Diagrams: 08/02/18 13:00 08/02/18 13:00 Labs: Laboratory Results - last 24 hr 08/02/18 08/02/18 08/02/18 13:00 13:00 14:23 WBC 9.8 RBC 4.80 Hgb 13.8 Hct 41.7 MCV 86.8 D MCH 28.6 MCHC 33.0 RDW 13.9 Plt Count 294 MPV 9.0 Neut % (Auto) 70.5 Lymph % (Auto) 20.3 [place] % (Auto) 7.0 Eos % (Auto) 1.4 Baso % (Auto) 0.8 Neut # (Auto) 6.9 Lymph # (Auto) 2.0 [place] # (Auto) 0.7 Eos # (Auto) 0.1 Baso # (Auto) 0.1 Sodium 134 Potassium 3.9 Chloride 98 Carbon Dioxide 25 Anion Gap 15 BUN 13 Creatinine 0.7 Est GFR ( Amer) > 60 Est GFR (Non-Af Amer) > 60 Random Glucose 86 Calcium 9.5 Total Bilirubin 0.2 AST 35 ALT 70 H D Alkaline Phosphatase 102 Total Protein 8.1 Albumin 4.4 Globulin 3.7 Albumin/Globulin Ratio 1.2 Triglycerides Cholesterol LDL Cholesterol Direct HDL Cholesterol Thyroxine (T4) TSH 3rd Generation Urine Color Urine Clarity Urine pH Ur Specific [place] Urine Protein Urine Glucose (UA) Urine Ketones Urine Blood Urine Nitrate Urine Bilirubin Urine Urobilinogen Ur Leukocyte Esterase Urine RBC (Auto) Urine Microscopic WBC Ur Squamous Epith Cells Amorphous Sediment Urine Opiates Screen Negative Urine Methadone Screen Negative Ur Barbiturates Screen Negative Ur Phencyclidine Scrn Negative Ur Amphetamines Screen Negative U Benzodiazepines Scrn Negative U Oth Cocaine Metabols Negative U Cannabinoids Screen Negative Alcohol, Quantitative < 10 08/02/18 08/03/18 14:23 08:05 WBC RBC Hgb Hct MCV MCH MCHC RDW Plt Count MPV Neut % (Auto) Lymph % (Auto) [place] % (Auto) Eos % (Auto) Baso % (Auto) Neut # (Auto) Lymph # (Auto) [place] # (Auto) Eos # (Auto) Baso # (Auto) Sodium Potassium Chloride Carbon Dioxide Anion Gap BUN Creatinine Est GFR ( Amer) Est GFR (Non-Af Amer) Random Glucose Calcium Total Bilirubin AST ALT Alkaline Phosphatase Total Protein Albumin Globulin Albumin/Globulin Ratio Triglycerides 176 H D Cholesterol 242 H LDL Cholesterol Direct 153 H HDL Cholesterol 53 Thyroxine (T4) 6.36 TSH 3rd Generation 1.07 Urine Color Light red Urine Clarity Cloudy Urine pH 7.0 Ur Specific [place] < 1.005 Urine Protein 30 Urine Glucose (UA) Neg Urine Ketones Negative Urine Blood Large Urine Nitrate Negative Urine Bilirubin Negative Urine Urobilinogen 0.2-1.0 Ur Leukocyte Esterase Large Urine RBC (Auto) 17 H Urine Microscopic WBC 34 H Ur Squamous Epith Cells 6 H Amorphous Sediment Rare H Urine Opiates Screen Urine Methadone Screen Ur Barbiturates Screen Ur Phencyclidine Scrn Ur Amphetamines Screen U Benzodiazepines Scrn U Oth Cocaine Metabols U Cannabinoids Screen Alcohol, Quantitative Assessment & Plan (1) Anxiety Status: Acute Comment: psyche is managing
--- NOTE | 2018-08-03 15:24 | PCM.PYCHPN ---
Psychiatric Progress Note - Psychiatric Progress Note Patient seen today, length of contact: pt evaluated discussed with team chart reviewed Patient Chief Complaint: I feel I am going crazy Problems Identified/Issues Discussed: pt evaluated, anxious , labile iritable, reported feeling as if she will , delusional thought process and disorganized behavior, at times appear internally preoccupied. pt verbalizing feeling that she will yet denied any active suic idal ideation or intent on the unit, denied command hallucinations, pt needs frequent redirection Medical Problems: multiple inpatient hospitalizations, hx of non compliance DSM 5 Symptoms Update: schizoaffective disorder' panic disorder Medication Change: Yes (start haldol) Medical Record Reviewed: Yes Mental Status Examination - Cognitive Function Orientation: Person, Place Attention: Poor Concentration: Poor Fund of Knowledge: Poor Decription of patient's judgement and insights: poor - Mood Mood: Depressed, Anxious - Affect Affect: Broad, Depressed - Speech Speech: Loud - Formal Thought Process Formal Thought Process: Hallucinations, Delusions, Circumstantial - Suicidal Ideation Suicidal Ideation: No - Homicidal Ideation Homicidal Ideation: No Goal/Treatment Plan - Goal/Treatment Plan Need for Continued Stay: Severe depression anxiety, Discharge may exacerbated symptoms Progress Toward Problem(s) and Goals/Treatment Plan: neurontin 100mg tid trazodone 200mg qhs haldol 5mg bid cogentin 1mg bid cbt group and supportive therapy
--- NOTE | 2018-08-04 15:55 | PCM.PYCHPN ---
Psychiatric Progress Note - Psychiatric Progress Note Patient seen today, length of contact: pt evaluated discussed with team chart reviewed Patient Chief Complaint: I feel I will Problems Identified/Issues Discussed: pt evaluated with treatment team, continues to be anxious labile, loud obssesive thoughts about loosing her life, limited insight and poor judgment denied suicidal or homicidal ideation, denied command hallucinations Medical Problems: multiple inpatient hospitalizations, hx of non compliance DSM 5 Symptoms Update: bipolar disorder generalized anxiety disorder Medication Change: Yes (start seroquel) Medical Record Reviewed: Yes Mental Status Examination - Cognitive Function Orientation: Person, Place Attention: Poor Concentration: Poor Fund of Knowledge: Poor Decription of patient's judgement and insights: poor - Mood Mood: Depressed, Anxious - Affect Affect: Broad, Depressed - Speech Speech: Loud - Formal Thought Process Formal Thought Process: Hallucinations, Delusions, Circumstantial - Suicidal Ideation Suicidal Ideation: No - Homicidal Ideation Homicidal Ideation: No Goal/Treatment Plan - Goal/Treatment Plan Need for Continued Stay: Severe depression anxiety, Discharge may exacerbated symptoms Progress Toward Problem(s) and Goals/Treatment Plan: neurontin 400mg tid trazodone 200mg qhs discontinue haldol 5mg bid start seroquel 100mg tid and 200mg qhs cbt group and supportive therapy
--- NOTE | 2018-08-05 11:35 | PCM.PYCHPN ---
Psychiatric Progress Note - Psychiatric Progress Note Patient seen today, length of contact: pt evaluated discussed with team chart reviewed Patient Chief Complaint: I will if I leave the hospital Problems Identified/Issues Discussed: pt evaluated , seen in bed, continues to be anxious labile with fixed delusions about if she is not in the hospital she would , pt observed by staff to have improved sleep,continues to need frequent redirection , presenting with concrete thought process, limited insight into illness and poor judgment denied suicidal or homicidal ideation, denied command hallucinations Medical Problems: multiple inpatient hospitalizations, hx of non compliance DSM 5 Symptoms Update: schizoaffective disorder Medication Change: No Medical Record Reviewed: Yes Mental Status Examination - Cognitive Function Orientation: Person, Place Attention: Poor Concentration: Poor Fund of Knowledge: Poor Decription of patient's judgement and insights: poor - Mood Mood: Depressed, Anxious - Affect Affect: Broad, Depressed - Speech Speech: Loud - Formal Thought Process Formal Thought Process: Hallucinations, Delusions, Circumstantial - Suicidal Ideation Suicidal Ideation: No - Homicidal Ideation Homicidal Ideation: No Goal/Treatment Plan - Goal/Treatment Plan Need for Continued Stay: Severe depression anxiety, Discharge may exacerbated symptoms Progress Toward Problem(s) and Goals/Treatment Plan: neurontin 400mg tid trazodone 200mg qhs seroquel 100mg tid and 200mg qhs aids social worker will be contacting [facility] cbt group and supportive therapy
--- NOTE | 2018-08-06 15:30 | PCM.PYCHPN ---
Psychiatric Progress Note - Psychiatric Progress Note Patient seen today, length of contact: pt evaluated discussed with team chart reviewed Patient Chief Complaint: I AM WORRIED THAT I COULD HURT MY DAUGHTER Problems Identified/Issues Discussed: pt evaluated , seen in day room, reporting poor sleep although observed by staff to have good night sleep, , continues to be anxious labile with fixed delusions about l she would , also she is indicating that she feels she can hurt her young daughter pt observed to have igood appetite and attending groups continues to need frequent redirection , presenting with concrete thought process, limited insight into illness and poor judgment denied suicidal or homicidal ideation, denied command hallucinations Medical Problems: multiple inpatient hospitalizations, hx of non compliance DSM 5 Symptoms Update: bipolar disorder Medication Change: No Medical Record Reviewed: Yes Mental Status Examination - Cognitive Function Orientation: Person, Place Attention: Poor Concentration: Poor Fund of Knowledge: Poor Decription of patient's judgement and insights: poor - Mood Mood: Depressed, Anxious - Affect Affect: Broad, Depressed - Speech Speech: Loud - Formal Thought Process Formal Thought Process: Hallucinations, Delusions, Circumstantial - Suicidal Ideation Suicidal Ideation: No - Homicidal Ideation Homicidal Ideation: No Goal/Treatment Plan - Goal/Treatment Plan Need for Continued Stay: Severe depression anxiety, Discharge may exacerbated symptoms Progress Toward Problem(s) and Goals/Treatment Plan: neurontin 400mg tid trazodone 200mg qhs seroquel 100mg tid and 300mg qhs social work nurse will be contacting [facility] cbt group and supportive therapy
--- NOTE | 2018-08-07 11:51 | PCM.PYCHPN ---
Psychiatric Progress Note - Psychiatric Progress Note Patient seen today, length of contact: pt evaluated discussed with team chart reviewed Patient Chief Complaint: I still could not be outside the hospital Problems Identified/Issues Discussed: pt evaluated , reporting poor sleep although observed by staff to have good night sleep, , continues to be anxious labile with fixed delusions about she would if outside the hospital, , pt observed to have igood appetite and attending groups continues to need frequent redirection , presenting with concrete thought process, limited insight into illness and poor judgment denied suicidal or homicidal ideation, denied command hallucinations Medical Problems: multiple inpatient hospitalizations, hx of non compliance DSM 5 Symptoms Update: schizoaffective disorder Medication Change: No Medical Record Reviewed: Yes Mental Status Examination - Cognitive Function Orientation: Person, Place Attention: Poor Concentration: Poor Fund of Knowledge: Poor Decription of patient's judgement and insights: poor - Mood Mood: Depressed, Anxious - Affect Affect: Broad, Depressed - Speech Speech: Loud - Formal Thought Process Formal Thought Process: Hallucinations, Delusions, Circumstantial - Suicidal Ideation Suicidal Ideation: No - Homicidal Ideation Homicidal Ideation: No Goal/Treatment Plan - Goal/Treatment Plan Need for Continued Stay: Severe depression anxiety, Discharge may exacerbated symptoms Progress Toward Problem(s) and Goals/Treatment Plan: neurontin 400mg tid trazodone 200mg qhs seroquel 100mg tid and 300mg qhs social insurance analyst will be contacting [facility] cbt group and supportive therapy
--- NOTE | 2018-08-08 10:08 | PCM.PYCHPN ---
Psychiatric Progress Note - Psychiatric Progress Note Patient seen today, length of contact: Pt evaluated, case discussed w/ team, chart reviewed Patient Chief Complaint: "I can't sleep." Problems Identified/Issues Discussed: Pt continues to report poor sleep, anxiety and believes that she will if she leaves the hospital. She reports that her perceived sleep deprivation makes her feel suicidal, though she denies acute ideation/plan/intent. She denies AH/VH. She continues to have limited insight and poor judgment. Medication Change: No Medical Record Reviewed: Yes Consults ordered or reviewed: Medicine consult Mental Status Examination - Cognitive Function Orientation: Person, Place Attention: Poor Concentration: Poor Fund of Knowledge: Poor Decription of patient's judgement and insights: Poor I/J - Mood Mood: Depressed, Anxious - Affect Affect: Broad, Depressed - Speech Speech: Loud - Formal Thought Process Formal Thought Process: Delusions, Circumstantial - Suicidal Ideation Suicidal Ideation: No - Homicidal Ideation Homicidal Ideation: No Goal/Treatment Plan - Goal/Treatment Plan Need for Continued Stay: Severe depression anxiety, Discharge may exacerbated symptoms Progress Toward Problem(s) and Goals/Treatment Plan: -Continue current medications -Individual and group therapy -Psychoeducation -Disposition planning
--- NOTE | 2018-08-09 13:28 | PCM.PYCHPN ---
Psychiatric Progress Note - Psychiatric Progress Note Patient seen today, length of contact: Pt evaluated, case discussed w/ team, chart reviewed Patient Chief Complaint: I will , I will hurt myself and others if I leave the hospital Problems Identified/Issues Discussed: pt evaluated continues to be loud , irritable, presenting with anxious mood, stating that she feels she woul if she leaves the hospital pt indicated she is currently homeless and does not want to be on the street , pt needs frequent behavioural redirection, despite stating she would hurt herself denied any current plan or active suicidal intent while on the unit behavioral treatment provided , pt denied any current command hallucinations Medical Problems: multiple inpatient hospitalizations, hx of non compliance DSM 5 Symptoms Update: schizoaffective disorder Medication Change: Yes (thorazine prn ) Medical Record Reviewed: Yes Mental Status Examination - Cognitive Function Orientation: Person, Place Attention: Poor Concentration: Poor Fund of Knowledge: Poor - Mood Mood: Depressed, Anxious - Affect Affect: Broad, Depressed - Speech Speech: Loud - Formal Thought Process Formal Thought Process: Delusions, Circumstantial - Suicidal Ideation Suicidal Ideation: No - Homicidal Ideation Homicidal Ideation: No Goal/Treatment Plan - Goal/Treatment Plan Need for Continued Stay: Severe depression anxiety, Discharge may exacerbated symptoms Progress Toward Problem(s) and Goals/Treatment Plan: neurontin 400mg tid trazodone 200mg qhs start horazine prn seroquel 100mg tid and 300mg qhs early childhood services coordinator will be contacting [facility] behavioral, group and supportive therapy
--- NOTE | 2018-08-10 13:08 | PCM.PYCHPN ---
Psychiatric Progress Note - Psychiatric Progress Note Patient seen today, length of contact: Pt evaluated, case discussed w/ team, chart reviewed Patient Chief Complaint: I do not want to be homeless Problems Identified/Issues Discussed: pt today less labile and less irritable, observed to have good response to thorazine, no changes in sleep or appetite, pt continues to report she feels she will if discharged from the hospital, supportive therapy provided behavioral treatment provided , pt denied any current command hallucinations , denied any current thoughts of self harm Medical Problems: multiple inpatient hospitalizations, hx of non compliance DSM 5 Symptoms Update: schizoaffective disorder Medication Change: No (thorazine prn ) Medical Record Reviewed: Yes Mental Status Examination - Cognitive Function Orientation: Person, Place Attention: WNL Concentration: Poor Association: WNL Fund of Knowledge: Poor - Mood Mood: Depressed, Anxious - Affect Affect: Broad, Depressed - Speech Speech: Loud - Formal Thought Process Formal Thought Process: Delusions, Circumstantial - Suicidal Ideation Suicidal Ideation: No - Homicidal Ideation Homicidal Ideation: No Goal/Treatment Plan - Goal/Treatment Plan Need for Continued Stay: Severe depression anxiety, Discharge may exacerbated symptoms Progress Toward Problem(s) and Goals/Treatment Plan: neurontin 400mg tid trazodone 200mg qhs start thorazine prn seroquel 100mg tid and 300mg qhs social science teacher will be contacting [facility] behavioral, group and supportive therapy
--- NOTE | 2018-08-11 12:29 | PCM.PYCHPN ---
Psychiatric Progress Note - Psychiatric Progress Note Patient seen today, length of contact: Pt evaluated, case discussed w/ team, chart reviewed Patient Chief Complaint: I am still going crazy, I may hurt myself or my children Problems Identified/Issues Discussed: pt evaluated with treatment team, continues to present with anxious mood and affect, labile, irritable, limited insight into illness , continues to report that she is unable to care for herself and if discharged she would hurt herself or even hurt her children, pt with borderline intellectual function, needs a lot of encouragement to attend to her ADL'S and needs constant behavioral redirection by staff, continues to report that she would be unable to survive outside the hospital, not reponding to medication management Medical Problems: multiple inpatient hospitalizations, hx of non compliance DSM 5 Symptoms Update: schizoaffective disorder generalized anxiety disorder borderline intellectual function Medication Change: No Medical Record Reviewed: Yes Mental Status Examination - Cognitive Function Orientation: Person, Place Attention: WNL Concentration: Poor Association: WNL Fund of Knowledge: Poor - Mood Mood: Depressed, Anxious - Affect Affect: Broad, Depressed - Speech Speech: Loud - Formal Thought Process Formal Thought Process: Delusions, Circumstantial - Suicidal Ideation Suicidal Ideation: Yes - Homicidal Ideation Homicidal Ideation: No Goal/Treatment Plan - Goal/Treatment Plan Need for Continued Stay: Severe depression anxiety, Discharge may exacerbated symptoms Progress Toward Problem(s) and Goals/Treatment Plan: pt at current mental status continues to verbalize suicidal thoughts and homicidal thoughts , pt unable to care for self will be referred for screening for invoulantry admission for need for lfurther stabilization continue with neurontin 100mg tid trazodone 200mg qhs start thorazine prn seroquel 100mg tid and 300mg qhs 7th grade social studies teacher will be contacting [facility] behavioral, group and supportive therapy
[2018-08-11 16:14] VITALS: BP 129/77; PULSE 103; RESP 20; TEMP 97.2
[2018-08-11 16:22] LABS: SQUAMOUS EPITHIAL 2 /hpf (0-5); URINE BACTERIA OCC (<OCC); URINE BILIRUBIN NEGATIVE (NEGATIVE); URINE BLOOD LARGE (NEGATIVE); URINE CLARITY CLOUDY (Clear); URINE COLOR RED (YELLOW); URINE GLUCOSE (UA) NEG (NEGATIVE); URINE LEUKOCYTE ESTERASE MOD Leu/uL (Negative); URINE PROTEIN 30 mg/dL (NEGATIVE); URINE UROBILINOGEN 0.2-1.0 mg/dL (0.2-1.0)
[2018-08-11 16:36] LABS: BASO # 0.1 K/uL (0.0-0.2); BASO % 0.6 % (0.0-2.0); EOS # 0.2 K/uL (0.0-0.7); EOS % 1.8 % (0.0-4.0); HEMOGLOBIN 13.4 g/dL (12.0-16.0); LYMPH # 2.1 K/uL (1.0-4.3); LYMPH % 21.8 % (20.0-40.0); MEAN CELL VOLUME 87.2 fl (81.0-99.0); MEAN CORPUSCULAR HEMOGLOBIN 28.2 pg (27.0-31.0); MEAN CORPUSCULAR HGB CONC 32.3 g/dL (33.0-37.0); MEAN PLATELET VOLUME 8.7 fl (7.2-11.7); MONO # 0.4 K/uL (0.0-0.8); MONO % 3.9 % (0.0-10.0); NEUT % 71.9 % (50.0-75.0); RBC 4.74 Mil/uL (3.80-5.20); RED CELL DISTRIBUTION WIDTH 13.7 % (11.5-14.5); WHITE BLOOD COUNT 9.8 K/uL (4.8-10.8)
[2018-08-11 16:44] LABS: ALB/GLOB RATIO 1.2 (1.0-2.1); ALBUMIN 4.2 g/dL (3.5-5.0); ALT/SGPT 67 U/L (9-52); AST/SGOT 40 U/L (14-36); BLOOD UREA NITROGEN 11 mg/dl (7-17); CALCIUM 9.3 mg/dL (8.4-10.2); GFR NON-AFRICAN AMERICAN > 60
[2018-08-11] MEDS: Tmp-Smz 800 mg-160 mg DS Tab PO SCH (21:10)
[2018-08-12] MEDS: Tmp-Smz 800 mg-160 mg DS Tab PO SCH ×2 (10:00→21:42)
--- NOTE | 2018-08-12 14:18 | PCM.PYCHPN ---
Psychiatric Progress Note - Psychiatric Progress Note Patient seen today, length of contact: Pt evaluated, case discussed w/ team, chart reviewed Patient Chief Complaint: I am going crazy, Problems Identified/Issues Discussed: pt evaluated, seen in bed, continues to be labile anxious irritable, poor insight into illness, verbalizing thoughts of self harm if discharged, unable to care for self needs frequent behavioral redirection, denied active thoughts of self harm on the unit, denied command hallucinations Medical Problems: multiple inpatient hospitalizations, hx of non compliance DSM 5 Symptoms Update: schizoaffective disorder generalized anxiety disorder Medication Change: No Medical Record Reviewed: Yes Mental Status Examination - Cognitive Function Orientation: Person, Place Attention: WNL Concentration: Poor Association: WNL Fund of Knowledge: Poor - Mood Mood: Depressed, Anxious - Affect Affect: Broad, Depressed - Speech Speech: Loud - Formal Thought Process Formal Thought Process: Delusions, Circumstantial - Suicidal Ideation Suicidal Ideation: Yes - Homicidal Ideation Homicidal Ideation: No Goal/Treatment Plan - Goal/Treatment Plan Need for Continued Stay: Severe depression anxiety, Discharge may exacerbated symptoms Progress Toward Problem(s) and Goals/Treatment Plan: pt at current mental status continues to verbalize suicidal thoughts and homicidal thoughts , pt unable to care for self , referred for screening for invoulantry admission for need for further stabilization, accepted and awaiting a bed continue with neurontin 100mg tid trazodone 200mg qhs start thorazine prn seroquel 100mg tid and 300mg qhs social service agency director will be contacting [facility] behavioral, group and supportive therapy
== END 2018-08-13 00:45 | DRG 750 ==
LOC: H.ER 10:22 → H.ERHOLD 13:08 → H.PSYCH 14:38
PROVIDERS: ADMIT Psychiatry & Neurology Psychiatry; ATTEND Psychiatry & Neurology Psychiatry
PROC: GZHZZZZ Group Psychotherapy (ICD-10-PCS; principal; 2018-08-02)
PROC: GZ58ZZZ Individual Psychotherapy, Cognitive-Behavioral (ICD-10-PCS; 2018-08-02)
DX: F25.9 Schizoaffective disorder, unspecified (principal); F32.1 Major depressive disorder, single episode, moderate; R45.851 Suicidal ideations; F41.0 Panic disorder [episodic paroxysmal anxiety]; F41.1 Generalized anxiety disorder; R45.850 Homicidal ideations; G47.00 Insomnia, unspecified; Z91.19 Patient's noncompliance with other medical treatment and regimen; Z59.0 Homelessness; Z79.899 Other long term (current) drug therapy